=== PATIENT | female | born 1965 | race Caucasian/White ===

== ENCOUNTER 2019-04-15 13:53 | Observation (INO) | payer OTHER ==
[2019-04-15 15:10] LABS: Anion Gap 13 mmol/L (10-20); BUN (Urea Nitrogen) 7 mg/dL (9.8-20.1); Calc. Creatinine Clearance 0 mL/min (70-130); Calcium 8.2 mg/dL (7.8-10.44); Carbon Dioxide 18 mmol/L (22-29); Chloride 113 mmol/L (98-107); Estimated GFR-MDRD 82; Glucose 87 mg/dL (70-105); Potassium 4.2 mmol/L (3.5-5.1); Sodium 140 mmol/L (136-145)
--- NOTE | 2019-04-15 16:46 | PDOC.FPRHP ---
- History of Present Illness Chief Complaint: found unresponsive History of Present Illness: Pt states she was found outside by her son unresponsive. She was taken to [facility], and then transferred to [place]. Pt denies taking any bezodiazepam today. Her last dose was X3 days ago. She denies any suicidal or homicidal ideation. Pt states she does not remember anything after smoking cigarettes this morning. She states she only took her DM medication this morning. States she started coughing last night, non-productive. Son states she has taken 45 Xanax in the past month. ED course: Pt UDS showed + benzo Pt's encephalopathy has improved. - Allergies/Adverse Reactions Allergies Allergy/AdvReac Type Severity Reaction Status Date / Time ketorolac tromethamine Allergy Verified 04/15/19 18:35 [From Toradol] Penicillins Allergy Verified 04/15/19 18:35 phenytoin sodium Allergy Verified 04/15/19 18:35 [From Dilantin] phenytoin sodium extended Allergy Verified 04/15/19 18:35 [From Dilantin] pregabalin [From Lyrica] Allergy Verified 04/15/19 18:35 Sulfa (Sulfonamide Allergy Verified 04/15/19 18:35 Antibiotics) tuna Allergy Uncoded 04/15/19 18:35 - Home Medications Medication Instructions Recorded Confirmed Type ALPRAZolam 2 mg PO TID 10/23/15 04/15/19 History Pioglitazone HCl 15 mg PO HS 10/23/15 04/15/19 History metFORMIN HCl 1,000 mg PO BID-WM 10/23/15 04/15/19 History Bictegrav/Emtricit/Tenofov Ala 1 tab PO DAILY 04/15/19 04/15/19 History [Biktarvy 50-200-25 mg Tablet] Cetirizine HCl [Zyrtec] 10 mg PO DAILY 04/15/19 04/15/19 History Omeprazole 40 mg PO DAILY 04/15/19 04/15/19 History Ondansetron [Zofran ODT] 4 mg PO Q6HR PRN 04/15/19 04/15/19 History Spironolactone 50 mg PO QAM 04/15/19 04/15/19 History busPIRone HCl [Buspirone HCl] 30 mg PO BID 04/15/19 04/15/19 History traMADol HCl [Tramadol HCl] 50 mg PO Q6HR PRN 04/15/19 04/15/19 History - History PMHx: HIV, Cirrhosis, Hep C, DM II, anxiety PSHx: L-eye removal, BTL, cholecystectomy FHx: non-contributory Social: smokes cigarettes 1/2 ppd for 40 years, drinks etoh occasionally, denies recent drug use. Past cocaine abuse. Denies IVDA. - Review of Systems General: denies: fever/chills, night sweats Eyes: denies: eye pain, vision changes ENT: denies: nasal congestion, rhinorrhea Respiratory: reports: cough, congestion. denies: shortness of breath Cardiovascular: denies: chest pain, edema Gastrointestinal: denies: nausea, vomiting, diarrhea Skin: denies: rashes Musculoskeletal: denies: pain, tenderness Neurological: denies: numbness, seizure Psychological: reports: anxiety - Vital signs BP: 119/67 HR: 94 RR: 18 Tmax: 98.2 Pox: 94% on RA Wt: 57.8 - Physical Exam Constitutional: NAD, awake, alert and oriented, well developed HEENT: normocephalic and atraumatic, PERRLA, EOMI, conjunctiva clear, no scleral icterus, grossly normal vision, grossly normal hearing, MMM Neck: supple, FROM, trachea midline, no LAD, no JVD Heart: RRR, pulses present, no edema -Heart: 3/6 systolic murmur Lungs: CTAB, no respiratory distress, good air movement -Lungs: coughing on exam. Abdomen: soft, non-tender, bowel sounds present, no masses/distention Musculoskeletal: normal structure, normal tone, ROM grossly normal Neurological: no focal deficit, CN II-XII intact, normal sensation Skin: no rash/lesions, good turgor, capillary refill <2 seconds Heme/Lymphatic: no unusual bruising or bleeding, no purpura, no petechia Psychiatric: normal mood and affect -Psychiatric: memory of events this morning not intact. FMR H&P: Results - Labs Result Diagrams: 04/15/19 14:43 Lab results: Sodium 140 mmol/L (136-145) 04/15/19 14:43 Potassium 4.2 mmol/L (3.5-5.1) 04/15/19 14:43 Chloride 113 mmol/L (98-107) H 04/15/19 14:43 Carbon Dioxide 18 mmol/L (22-29) L 04/15/19 14:43 BUN 7 mg/dL (9.8-20.1) L 04/15/19 14:43 Creatinine 0.74 mg/dL (0.6-1.1) 04/15/19 14:43 Glucose 87 mg/dL (70-105) 04/15/19 14:43 Lactic Acid 1.9 mmol/L (0.5-2.2) 04/15/19 14:43 Calcium 8.2 mg/dL (7.8-10.44) 04/15/19 14:43 Laboratory Tests 04/15/19 04/15/19 10:49 10:49 Salicylates Less than 8.0 L Urine Opiates Screen Not Detected Ur Oxycodone Screen Not Detected Urine Methadone Screen Not Detected Ur Propoxyphene Screen Not Detected Acetaminophen Less than 6.0 L Ur Barbiturates Screen Not Detected Ur Tricyclics Screen Not Detected Ur Phencyclidine Scrn Not Detected Ur Amphetamines Screen Not Detected U Methamphetamines Scrn Not Detected U Benzodiazepines Scrn Detected H U Cocaine Metab Screen Not Detected U Cannabinoids Screen Not Detected Plasma Alcohol Less than 10 FMR H&P: A/P - Problem List (1) Acute encephalopathy Current Visit: Yes Status: Resolved Code(s): G93.40 - ENCEPHALOPATHY, UNSPECIFIED (2) Benzodiazepine dependence Current Visit: Yes Status: Acute Code(s): F13.20 - SEDATIVE, HYPNOTIC OR ANXIOLYTIC DEPENDENCE, UNCOMPLICATED (3) Generalized anxiety disorder Current Visit: Yes Status: Acute Code(s): F41.1 - GENERALIZED ANXIETY DISORDER (4) Hepatitis C antibody positive in blood Current Visit: No Status: Acute Code(s): R76.8 - OTHER SPECIFIED ABNORMAL IMMUNOLOGICAL FINDINGS IN SERUM (5) COPD (chronic obstructive pulmonary disease) Current Visit: Yes Status: Chronic (6) Cirrhosis Current Visit: Yes Status: Chronic Code(s): K74.60 - UNSPECIFIED CIRRHOSIS OF LIVER (7) Diabetes type 2, controlled Current Visit: Yes Status: Chronic Code(s): E11.9 - TYPE 2 DIABETES MELLITUS WITHOUT COMPLICATIONS (8) HIV (human immunodeficiency virus infection) Current Visit: Yes Status: Chronic - Plan 53 y/o F admitted to observation for acute encephalopathy 2/2 suspected benzodiazepam overdose. 1. Acute encephalopathy, NOS- resolved - most likely from benzodiazepam overdose - last dose X3 days ago per pt - admit for obs and furhter evaluation - ammonia level pending, pt has hx of hepatic encephalopathy. - Denies any suicidal thoughts inciting this event. Denies current suicidal or homicidal ideation - IVF hydration at 100 mL/hr of LR. 2. Cirrhosis - Ammonia level pending - continue home medications - ASE protocol 3. Hx of DM II - continue home medications 4. Hx of anxiety - hold benzodiazepams 5. Hx of HIV - continue home medications 6. Hx of Hep C - ammonia level pending, as pt has cirrhosis 7. Hx of COPD - duonebs PRN Code status: full code Diet: CC DVT ppx: SCDs Dispo: stable, admitting for observation while patient recuperates from bezodiazepam overdose. FMR H&P: Upper Level - Pertinent history 53 yo female presents for evaluation of AMS for one day. Son reports inappropriate use of Xanax. Patient reports no SI or HI. Patient is A&Ox4. ED physician requested observation stay due to possible Benzodiazepine OD. Please see learning and development intern note above for further information. Physical Exam General: NAD, appears stated age HEENT: moist mucous membranes, PERRLA CV: RRR, 3/6 Systolic murmur noted Respiratory: CTA-no wheezing Abdomen: Soft, nontender, no masses Extremities: moves all four equally Neuro: No focal deficits. Unremarkable exam Psych: A&Ox4, normal affect - Plan Date/Time: 04/15/19 3459 I, John Crowe MD, have evaluated this patient and agree with findings/ plan as outlined by learning and development intern resident. Pertinent changes/additions are listed here. 1. Encephalopathy - Resolved - Alcohol negative - Likely secondary to benzodiazepine use with UDS positive - Will order ASE protocol - IVF - Will order Ammonia to rule out hepatic cause All chronic conditions will have medications restarted. PCP: PATRICIA Choe CODE STATUS: FULL CODE Disposition: Stable, will admit to observation with anticipated discharge tomorrow AM. Addendum - Attending - Attending Attestation Date/Time: 04/15/19 0392 I personally evaluated the patient and discussed the management with Dr. Li. I agree with the History, Examination, Assessment and Plan documented above with any addition or exceptions noted below. The patient states her son found her "passed out" in the front yard and the only thing she remembers is going outside to smoke. UDS positive for benzos. She states she normally takes three a day but she states she hasn't had any today. Pt is sleepy but answers questions appropriately. Will monitor overnight. Encephalopathy appears to be resolving. Monitor for withdrawal.
[2019-04-15] MEDS ORDERED: Acetaminophen 325 MG TAB PO PRN (17:55)
[2019-04-15] MEDS ORDERED: Ondansetron ODT 4 MG TAB SL PRN (17:55)
[2019-04-15] MEDS ORDERED: Sodium Chloride 0.9% 1,000 ML IV SCH (17:55)
[2019-04-15] MEDS ORDERED: Ondansetron PF 4 MG/2 ML Vial IVP PRN (17:55)
[2019-04-15 18:06] VITALS: BMI 22.5
[2019-04-15] MEDS: Lactated Ringer's 1,000 ML IV SCH (18:17)
[2019-04-15] MEDS ORDERED: Nicotine 14 MG PATCH TD SCH (21:00)
[2019-04-16] MEDS: Lactated Ringer's 1,000 ML IV SCH (04:02)
[2019-04-16 04:58] LABS: ALT (SGPT) 22 U/L (8-55); AST (SGOT) 37 U/L (5-34); Albumin 2.6 g/dL (3.5-5.0); Alkaline Phosphatase 65 U/L (40-110); Anion Gap 10 mmol/L (10-20); BUN (Urea Nitrogen) 6 mg/dL (9.8-20.1); Bilirubin, Total 0.8 mg/dL (0.2-1.2); Calc. Creatinine Clearance 78 mL/min (70-130); Calcium 8.1 mg/dL (7.8-10.44); Carbon Dioxide 21 mmol/L (22-29); Chloride 114 mmol/L (98-107); Estimated GFR-MDRD 80; Glucose 117 mg/dL (70-105); Potassium 3.9 mmol/L (3.5-5.1); Protein, Total 5.6 g/dL (6.0-8.3); Sodium 141 mmol/L (136-145)
--- NOTE | 2019-04-16 05:40 | PDOC.FM ---
- Subjective Subjective: Mrs. Irby was resting comfortably in her hospital bed and finishing her breakfast at the time of evaluation. She denied any acute overnight events and stated that she was feeling much better than the day prior. Additionally, she noted that she had 1 BM that was free of blood or mucous. - Objective Vital Signs & Weight: Vital Signs (12 hours) Temp Pulse Resp BP Pulse Ox 04/16/19 03:50 98.9 F 84 18 91/57 L 92 L 04/16/19 01:45 98.8 F 93 24 H 101/57 L 94 L 04/15/19 23:40 99.0 F 102 H 22 H 111/93 H 92 L 04/15/19 19:47 98.4 F 94 20 115/86 92 L 04/15/19 17:51 98.2 F 84 18 119/67 94 L Weight Weight 57.788 kg I&O: 04/14/19 04/15/19 04/16/19 06:59 06:59 06:59 Intake Total 921 Balance 921 Result Diagrams: 04/16/19 04:11 04/16/19 04:11 Phys Exam - Physical Examination Constitutional: NAD HEENT: PERRLA, moist MMs, sclera anicteric, oral pharynx no lesions Left pupil remains fixed and nonreactive - patient states chronic blindness Neck: supple, full ROM Respiratory: no wheezing, no rales, no rhonchi, clear to auscultation bilateral Cardiovascular: RRR, no significant murmur, no rub Gastrointestinal: soft, non-tender, no distention, positive bowel sounds Musculoskeletal: pulses present +2 at Radial Arteries Neurological: non-focal, moves all 4 limbs Psychiatric: normal affect, A&O x 3 Dx/Plan - Plan Plan: 1. Acute Encephalopathy, 2/2 Benzo Abuse -Per patient, last dose was on 04/12 -Benzo overdose is most likely etiology, but patient also has hx of Hepatic Encephalopathy -UDS: +Benzos -Ammonia: 36 (WNL) -Patient denies SI/HI -Fluid resuscitation w/ LR @ 100 ml/hr 2. Cirrhosis, Multi-Factorial -Ammonia: 36 (WNL) -Continue home medication regimen 3. DM2 -Blood Glucose: 117 on 04/16 -Continue home medication regimen 4. Hx of Anxiety -Hold Benzo regimen - continue Buspirone 30 mg PO BID 5. HIV -Continue home medication regimen 6. Hx of Hep C -Complicated by #2 -Ammonia: 36 (WNL) 7. Hx of COPD -Duonebs PRN 8. Hx of Drug Abuse -Patient currently abuses Benzos, admitted to Crack Cocaine usage within past week -Monitor for signs of withdrawal to above-mentioned drugs -ASE Protocol Code Status: Full Code Diet: Carbohydrate Conscious DVT PPx: SCDs Dispo: Patient is currently stable on Observation Floor. Consider DC this afternoon if condition continues to remain stable. Ensure appropriate follow-up with Dr. Greg Choe (PCP) and encourage drug treatment program in preferred setting. Expected LOS < 24H Addendum - Attending - Attending Attestation Date/Time: 04/16/19 7074 I personally evaluated the patient and discussed the management with Dr. Chen. I agree with the History, Examination, Assessment and Plan documented above with any addition or exceptions noted below. The patient is doing well. She is alert and oriented. Stable for d/c. Recommend she follow up with PCP to discuss decreasing benzos.
[2019-04-16 05:46] LABS: #Eosinphils 0.1 thou/uL (0.0-0.7); #Lymphocytes 0.6 thou/uL (1.20-3.40); #Monocytes 0.4 thou/uL (0.11-0.59); #Neutrophils 1.8 thou/uL (1.40-6.50); %Basophils 0.2 % (0.0-1.0); %Eosinophils 2.2 % (0.0-10.0); %Lymphocytes 22.2 % (21.0-51.0); %Monocytes 12.3 % (0.0-10.0); %Neutrophils 63.1 % (42.0-75.0); Anisocytosis SLIGHT = 6-15 cells (100X) (0-5/hpf); MDiff Complete? YES; Mean Corpuscular Hemoglobin 28.3 pg (27.0-31.0); Mean Corpuscular Volume 88.3 fL (78.0-98.0); Mean Platelet Volume 11.1 fL (7.4-10.4); Platelet Count 54 thou/uL (130-400); Platelet Morphology Comment Appears Decreased; RBC Distribution Width 19.5 % (11.5-14.5); Red Blood Cell (RBC) Count 3.19 mill/uL (4.20-5.40); White Blood Cell (WBC) Count 2.8 thou/uL (4.8-10.8)
[2019-04-16] MEDS ORDERED: metFORMIN 500 MG TAB PO SCH (08:00)
[2019-04-16] MEDS ORDERED: busPIRone HCl 10 MG TAB PO SCH (09:00)
[2019-04-16] MEDS ORDERED: (Bictegrav/Emtricit/Tenofov Ala [Biktarvy 50-200-25 Mg Tablet] PO SCH (09:00)
[2019-04-16] MEDS ORDERED: Loratadine 10 MG TAB PO SCH (09:00)
[2019-04-16] MEDS ORDERED: Spironolactone 25 MG TAB PO SCH (09:00)
[2019-04-16 12:35] VITALS: BP 115/55; TEMP 97.6
[2019-04-16] MEDS ORDERED: Pioglitazone HCl 15 MG TAB PO SCH (21:00)
--- NOTE | 2019-04-17 01:04 | DIS ---
DATE OF ADMISSION: 04/15/2019 DATE OF DISCHARGE: 04/16/2019 RESIDENT: Abelino Chen MD ADMITTING ATTENDING: Anju Martínez MD DISCHARGE ATTENDING: Anju Martínez MD. CONSULTS: None. PROCEDURES: Brain CT revealing no acute findings; however, a prosthetic left globe was noted. Chest x-ray revealing no acute intrathoracic disease and EKG was performed at an outside hospital that revealed normal sinus rhythm. PRIMARY DIAGNOSIS: Altered mental status secondary to benzodiazepine overdose. SECONDARY DIAGNOSES: Generalized anxiety disorder, posttraumatic stress disorder, HIV, uncontrolled diabetes mellitus, hepatitis C, normocytic anemia, hyperammonia, benzodiazepine dependence, chronic obstructive pulmonary disease, polysubstance abuse, macrocytosis, thrombocytopenia, cirrhosis. DISCHARGE MEDICATIONS: None. DISCONTINUED MEDICATIONS: 1. Buspirone 30 mg p.o. b.i.d. 2. Lactated Ringer's at 100 mL/h. 3. Loratadine 10 mg p.o. daily. 4. Metformin 1000 mg p.o. b.i.d. 5. Nicotine patch 14 mg q.24 hours. 6. Protonix 40 mg p.o. daily. 7. Biktarvy 50/200/25 mg tablet once daily. 8. Pioglitazone 15 mg p.o. at bedtime. 9. Spironolactone 50 mg p.o. q.a.m. HISTORY OF PRESENT ILLNESS/HOSPITAL COURSE: Ms. Irby is a 53-year-old female, who presents for evaluation following mental status changes. Per ED provider report, she was allegedly found down in her yard by her son and was brought to an ER in [place], [place]. Following preliminary study, she was then transferred to the ER in [place], [place] at [facility]. She was A and O x0 and denied recent benzodiazepine use or abuse. She denied homicidal or suicidal ideations, but she did admit to a recent history of crack cocaine abuse within the past week. During her stay in the ED, she was given 1000 mL bolus of normal saline fluid. Additional imaging modalities and EKG were performed which are mentioned elsewhere in this note. Her condition continued to improve and she was admitted to the telemetry floor for observation. On evaluation on 04/16/2019, she was A and O x4. Her physical examination unremarkable and she was prepped for discharge. Prior to discharge, her vital signs revealed a temperature of 97.6, heart rate of 90 beats per minute, blood pressure of 115/55, respiratory rate of 20 per minute, O2 saturation of 97% on 3 L nasal cannula. LABORATORY DATA: Laboratory values revealed a white blood cell count of 2.8, hemoglobin of 9, hematocrit of 28.1, platelet count of 54. Sodium of 141, potassium 3.9, chloride 114, carbon dioxide 21, BUN 6, creatinine 0.76, glucose 117, calcium 8.1, total bilirubin 0.8, AST 37, ALT 22, alkaline phosphatase 65, ammonia 36. Troponins negative x1. TSH 0.905. UA revealed no proteins, glucose, ketones; moderate amount of blood; no nitrites; small amount of bilirubin, and no leukocyte esterase. Toxicology revealed a positive screen for benzodiazepines. DISPOSITION: Stable. DISCHARGE INSTRUCTIONS: 1. Location: Home. 2. Diet: Heart healthy and carbohydrate conscious. 3. Activity: Ad anirudh. 4. Followup: The patient was encouraged to follow up with her primary care provider whom she referred to as Greg Choe in 1 to 2 weeks in order to discuss her recent hospitalization as well as any necessary medication changes. The patient was encouraged to seek additional outside therapy for her drug abuse. Inpatient and/or outpatient drug abuse rehabilitation programs may benefit in the future. The patient was pleased with her level of care while in the hospital and her condition improved greatly during her time here. Job ID: [id number]
== END 2019-04-16 13:05 | disposition home or self-care (01) ==
LOC: ERS 13:53 → 2SW 16:00
PROVIDERS: ADMIT Family Medicine; ATTEND Family Medicine
DX: T42.4X1A Poisoning by benzodiazepines, accidental (unintentional), initial encounter (principal); G92 Toxic encephalopathy; F13.20 Sedative, hypnotic or anxiolytic dependence, uncomplicated; K74.60 Unspecified cirrhosis of liver; E11.9 Type 2 diabetes mellitus without complications; F17.210 Nicotine dependence, cigarettes, uncomplicated; F41.1 Generalized anxiety disorder; F14.11 Cocaine abuse, in remission; J44.9 Chronic obstructive pulmonary disease, unspecified; F43.10 Post-traumatic stress disorder, unspecified; D64.9 Anemia, unspecified; D69.6 Thrombocytopenia, unspecified; E72.20 Disorder of urea cycle metabolism, unspecified; Z21 Asymptomatic human immunodeficiency virus [HIV] infection status; Z79.84 Long term (current) use of oral hypoglycemic drugs; Z79.899 Other long term (current) drug therapy; Z88.0 Allergy status to penicillin; Z88.2 Allergy status to sulfonamides; Z88.6 Allergy status to analgesic agent; Z88.8 Allergy status to other drugs, medicaments and biological substances; Z91.013 Allergy to seafood
CPT/HCPCS: 36415; 36416; 80053; 82140; 83605; 85025; 94760; 96360; 96361; G0378

== ENCOUNTER 2020-04-18 13:23 | Outpatient (CLI) | payer OTHER | END 2020-04-18 13:24 | disposition home or self-care (01) | LOC: ULT 13:23 | PROVIDERS: ATTEND Family Medicine | DX: R01.1 Cardiac murmur, unspecified (principal); I10 Essential (primary) hypertension; I08.1 Rheumatic disorders of both mitral and tricuspid valves | CPT/HCPCS: 93306 ==

== ENCOUNTER 2020-04-30 08:35 | Outpatient (CLI) | payer OTHER ==
--- NOTE | 2020-04-30 09:52 | MMO ---
Bilateral MAMMO Bilat Screen DDI. CLINICAL HISTORY: Patient is 54 years old and is seen for screening. The patient has no family history of breast cancer. The patient has no personal history of cancer. VIEWS: The views performed were: bilateral craniocaudal and bilateral mediolateral oblique. FILMS COMPARED: The present examination has been compared to prior imaging studies performed at [facility] on 02/13/2007, 11/02/2011 and 05/21/2013, and at [facility] on 04/21/2018. This study has been interpreted with the assistance of computer-aided detection. MAMMOGRAM FINDINGS: The breasts are heterogeneously dense, which could obscure a lesion on mammography. There are no suspicious masses, suspicious calcifications, or new areas of architectural distortion. IMPRESSION: THERE IS NO MAMMOGRAPHIC EVIDENCE OF MALIGNANCY. A ROUTINE FOLLOW-UP MAMMOGRAM IN 1 YEAR IS RECOMMENDED. ACR BI-RADS Category 1 - Negative MAMMOGRAPHY NOTE: 1. A negative mammogram report should not delay a biopsy if a dominant of clinically suspicious mass is present. 2. Approximately 10% to 15% of breast cancers are not detected by mammography. 3. Adenosis and dense breasts may obscure an underlying neoplasm. Reported by: RAMSES ADAMS MD Electonically Signed: [id number]
== END 2020-04-30 08:36 | disposition home or self-care (01) ==
LOC: BICMAMMO 08:35
PROVIDERS: ATTEND Family Medicine
DX: Z12.31 Encounter for screening mammogram for malignant neoplasm of breast (principal)
CPT/HCPCS: 77067

== ENCOUNTER 2021-04-22 14:59 | Inpatient (IN) | payer OTHER ==
[~2021-04-22 14:59] MED LIST: Iopamidol-370 76% 500 ML 1 ML ONE
[2021-04-22 15:39] LABS: Actual Bicarbonate (HCO3v) 18 mEq/L (22-28); Analyzer IN Cardio ER; Base Excess -3.4 mEq/L (-2.0 to +3.0); Calcium, Ionized (venous) 1.03 mmol/L (1.16-1.32); Chloride (VBG) 105 mmol/L (98-106); Hemoglobin (Hb) 8.4 g/dL (11.7-16.0); Sodium 131.4 mmol/L (133-146); pH (venous) 7.52 (7.32-7.43)
[2021-04-22 15:47] LABS: Hemoglobin 7.7 g/dL (12.0-16.0); Mean Corpuscular HGB CONC 31.1 g/dL (32.0-36.0); Mean Corpuscular Hemoglobin 26.4 pg (27.0-31.0); Mean Corpuscular Volume 84.9 fL (78.0-98.0); Mean Platelet Volume 10.2 fL (7.4-10.4); Platelet Count 90 thou/uL (130-400); RBC Distribution Width 21.4 % (11.5-14.5); Red Blood Cell (RBC) Count 2.91 mill/uL (4.20-5.40); White Blood Cell (WBC) Count 5.7 thou/uL (4.8-10.8)
[2021-04-22 15:57] LABS: ALT (SGPT) 23 U/L (8-55); AST (SGOT) 37 U/L (5-34); Albumin 2.2 g/dL (3.5-5.0); Alkaline Phosphatase 138 U/L (40-110); Anion Gap 10 mmol/L (10-20); BUN (Urea Nitrogen) 14 mg/dL (9.8-20.1); Bilirubin, Total 2.2 mg/dL (0.2-1.2); Calc. Creatinine Clearance 0 mL/min (70-130); Calcium 8.2 mg/dL (7.8-10.44); Carbon Dioxide 23 mmol/L (22-29); Chloride 104 mmol/L (98-107); Globulin 4.5 g/dL (2.4-3.5); Glucose 112 mg/dL (70-105); Lipase 84 U/L (8-78); Potassium 3.7 mmol/L (3.5-5.1); Protein, Total 6.7 g/dL (6.0-8.3); Sodium 133 mmol/L (136-145)
[2021-04-22 16:06] LABS: Anisocytosis MODERATE=16-30 cells (100X) (0-5/hpf); Band 1 % (5-11); Eosinophils 7 % (0-10); Hypochromia SLIGHT = 6-15 cells (100X) (0-5/hpf); Lymphocytes 8 % (21-51); MDiff Complete? YES; Monocytes 5 % (0-10); Neutrophil 78 % (42-75); Platelet Morphology Comment Appears Decreased; Polychromasia MODERATE = 3-4 cells (100X) (0-2/hpf); Reactive Lymphocytes 1 % (0-10)
[2021-04-22] MEDS ORDERED: Cefepime 2 GM VIAL ONE (16:07)
[2021-04-22 16:15] LABS: INR-International Normal Ratio 1.3; Prothrombin Time 16.7 sec (12.0-14.7)
[2021-04-22 16:16] LABS: PTT 43.4 sec (22.9-36.1)
[2021-04-22] MEDS ORDERED: Albumin 25% 25 GM/100 ML BOT IVPB SCH (16:30)
[2021-04-22 17:25] LABS: RBC Count-Automated (BF) 210 /cu.mm; WBC/Nucleated-Auto (BF) 192 /cu.mm
[2021-04-22] MEDS ORDERED: Enoxaparin Sodium 80 MG/0.8 ML SYRINGE ONE (17:29)
[2021-04-22 17:30] LABS: BF Color Yellow; Body Fluid Source Ascites Body Fluid; Clarity Hazy (Clear); Tube # EDTA
[2021-04-22 17:50] LABS: BF Segmented Neutrophils 11 %; Cell Count Non Hematic 48 %; Lymphocytes 41 %
[2021-04-22 18:48] LABS: Lactic Acid 1.1 mmol/L (0.5-2.2)
[2021-04-22] MEDS ORDERED: Ondansetron ODT 4 MG TAB PO PRN (19:40)
[2021-04-22] MEDS ORDERED: Ondansetron PF 4 MG/2 ML Vial IVP PRN (19:40)
[2021-04-22] MEDS ORDERED: Furosemide 40 MG/4 ML VIAL SLOW IVP SCH (19:45)
[2021-04-22] MEDS ORDERED: Loratadine 10 MG TAB PO PRN (22:10)
[2021-04-22 22:20] VITALS: BMI 25.7
[2021-04-22] MEDS: Senokot 8.6 MG TAB PO SCH (22:54)
[2021-04-22] MEDS: Polyethylene Glycol 3350 17 GM Packet PO SCH (22:54)
[2021-04-23 05:42] LABS: Eosinophils 5 % (0-10); Hemoglobin 6.7 g/dL (12.0-16.0); Hypochromia SLIGHT = 6-15 cells (100X) (0-5/hpf); Lymphocytes 9 % (21-51); MDiff Complete? YES; Mean Corpuscular Hemoglobin 26.5 pg (27.0-31.0); Mean Corpuscular Volume 85.5 fL (78.0-98.0); Mean Platelet Volume 10.6 fL (7.4-10.4); Monocytes 6 % (0-10); Neutrophil 80 % (42-75); Platelet Count 63 thou/uL (130-400); Platelet Morphology Comment Appears Decreased; Polychromasia SLIGHT = 2-3 cells (100X) (0-2/hpf); RBC Distribution Width 21.8 % (11.5-14.5); Red Blood Cell (RBC) Count 2.51 mill/uL (4.20-5.40); Tear Drops SLIGHT = 2-5 cells (100X) (0-1/hpf); White Blood Cell (WBC) Count 3.7 thou/uL (4.8-10.8)
[2021-04-23 05:44] LABS: ALT (SGPT) 18 U/L (8-55); AST (SGOT) 31 U/L (5-34); Albumin 2.2 g/dL (3.5-5.0); Alkaline Phosphatase 116 U/L (40-110); Anion Gap 7 mmol/L (10-20); BUN (Urea Nitrogen) 14 mg/dL (9.8-20.1); Bilirubin, Total 1.8 mg/dL (0.2-1.2); Calc. Creatinine Clearance 87 mL/min (70-130); Carbon Dioxide 27 mmol/L (22-29); Chloride 103 mmol/L (98-107); Globulin 3.5 g/dL (2.4-3.5); Glucose 101 mg/dL (70-105); Potassium 3.3 mmol/L (3.5-5.1); Protein, Total 5.7 g/dL (6.0-8.3); Sodium 134 mmol/L (136-145)
[2021-04-23] MEDS: Senokot 8.6 MG TAB PO SCH ×2 (08:40→20:32)
[2021-04-23] MEDS: Losartan 25 MG TAB PO SCH ×2 (08:40→08:43)
[2021-04-23] MEDS: Spironolactone 25 MG TAB PO SCH (08:40)
[2021-04-23] MEDS: busPIRone HCl 10 MG TAB PO SCH (08:41)
[2021-04-23] MEDS ORDERED: Enoxaparin Sodium 80 MG/0.8 ML SYRINGE SC SCH (09:00)
[2021-04-23] MEDS ORDERED: FLU VACC QS2021-22(6MOS UP)/PF 60 MCG/0.5 ML SYRINGE IM ONE (09:00)
[2021-04-23 11:58] LABS: INR-International Normal Ratio 1.6; Prothrombin Time 19.1 sec (12.0-14.7)
[2021-04-23 11:59] LABS: PTT 51.9 sec (22.9-36.1)
[2021-04-23] MEDS ORDERED: Albumin 25% 25 GM/100 ML BOT IVPB SCH (12:00)
[2021-04-23 12:05] LABS: SARS-CoV-2 PCR by NAA Not Detected (NotDetected)
[2021-04-23] MEDS ORDERED: Sodium Bicarbonate 2.5 MEQ/5 ML VIAL ONE (13:32)
[2021-04-23] MEDS ORDERED: Lidocaine 1% PF 5 ML VIAL ONE (13:32)
[2021-04-23] MEDS: Albuterol Sulfate 2.5 mg/3 ml Neb NEB SCH ×2 (15:14→15:18)
[2021-04-23] MEDS: traZODone HCl 150 MG TAB PO SCH (20:32)
[2021-04-23] MEDS: Polyethylene Glycol 3350 17 GM Packet PO SCH (20:32)
[2021-04-24 05:08] LABS: Hemoglobin 8.2 g/dL (12.0-16.0); Mean Corpuscular HGB CONC 31.7 g/dL (32.0-36.0); Mean Corpuscular Hemoglobin 27.7 pg (27.0-31.0); Mean Corpuscular Volume 87.4 fL (78.0-98.0); Mean Platelet Volume 10.9 fL (7.4-10.4); Platelet Count 67 thou/uL (130-400); Red Blood Cell (RBC) Count 2.95 mill/uL (4.20-5.40); White Blood Cell (WBC) Count 5.2 thou/uL (4.8-10.8)
[2021-04-24 05:11] LABS: ALT (SGPT) 18 U/L (8-55); AST (SGOT) 32 U/L (5-34); Albumin 2.2 g/dL (3.5-5.0); Alkaline Phosphatase 106 U/L (40-110); Anion Gap 7 mmol/L (10-20); BUN (Urea Nitrogen) 11 mg/dL (9.8-20.1); Bilirubin, Total 2.5 mg/dL (0.2-1.2); Calc. Creatinine Clearance 92 mL/min (70-130); Carbon Dioxide 24 mmol/L (22-29); Chloride 106 mmol/L (98-107); Globulin 3.5 g/dL (2.4-3.5); Glucose 109 mg/dL (70-105); Potassium 3.1 mmol/L (3.5-5.1); Protein, Total 5.7 g/dL (6.0-8.3); Sodium 134 mmol/L (136-145)
[2021-04-24 06:01] LABS: Anisocytosis MODERATE=16-30 cells (100X) (0-5/hpf); Band 5 % (5-11); Eosinophils 3 % (0-10); Lymphocytes 14 % (21-51); MDiff Complete? YES; Monocytes 10 % (0-10); Myelocyte 1 % (0-0); Neutrophil 67 % (42-75); Platelet Morphology Comment Appears Decreased
[2021-04-24] MEDS: Albuterol Sulfate 2.5 mg/3 ml Neb NEB SCH ×3 (06:47→19:00)
[2021-04-24] MEDS ORDERED: Sodium Bicarbonate 2.5 MEQ/5 ML VIAL ONE (07:27)
[2021-04-24] MEDS ORDERED: Lidocaine 1% PF 5 ML VIAL ONE (07:27)
[2021-04-24] MEDS ORDERED: Albumin 25% 25 GM/100 ML BOT IVPB SCH (08:30)
[2021-04-24] MEDS ORDERED: Potassium Chloride 20 MEQ TAB PO SCH (08:30)
[2021-04-24] MEDS: Senokot 8.6 MG TAB PO SCH (09:19)
[2021-04-24] MEDS: Losartan 25 MG TAB PO SCH (09:29)
[2021-04-24] MEDS: busPIRone HCl 10 MG TAB PO SCH (09:30)
[2021-04-24] MEDS: Spironolactone 25 MG TAB PO SCH (09:30)
[2021-04-24 10:36] LABS: Magnesium 1.4 mg/dL (1.6-2.6)
[2021-04-24] MEDS ORDERED: PROPOFOL 200 MG/20 ML VIAL ONE (12:34)
[2021-04-24] MEDS ORDERED: Sodium Chloride 0.9% 10 ML ONE (12:53)
[2021-04-24] MEDS ORDERED: Bictegrav/Emtricit/Tenofov Ala [Biktarvy 50-200-25 Mg Tablet] PO SCH (19:45)
[2021-04-24] MEDS: traZODone HCl 150 MG TAB PO SCH (20:51)
[2021-04-25 05:15] LABS: ALT (SGPT) 16 U/L (8-55); AST (SGOT) 34 U/L (5-34); Albumin 2.2 g/dL (3.5-5.0); Alkaline Phosphatase 96 U/L (40-110); Anion Gap 6 mmol/L (10-20); BUN (Urea Nitrogen) 9 mg/dL (9.8-20.1); Bilirubin, Total 1.4 mg/dL (0.2-1.2); Calc. Creatinine Clearance 91 mL/min (70-130); Carbon Dioxide 25 mmol/L (22-29); Chloride 106 mmol/L (98-107); Globulin 3.2 g/dL (2.4-3.5); Glucose 131 mg/dL (70-105); Potassium 3.8 mmol/L (3.5-5.1); Protein, Total 5.4 g/dL (6.0-8.3); Sodium 133 mmol/L (136-145)
[2021-04-25 06:11] LABS: Band 7 % (5-11); Eosinophils 3 % (0-10); Hemoglobin 7.8 g/dL (12.0-16.0); Hypochromia SLIGHT = 6-15 cells (100X) (0-5/hpf); Large Platelets SLIGHT; Lymphocytes 8 % (21-51); MDiff Complete? YES; Mean Corpuscular HGB CONC 31.7 g/dL (32.0-36.0); Mean Corpuscular Hemoglobin 27.7 pg (27.0-31.0); Mean Corpuscular Volume 87.6 fL (78.0-98.0); Mean Platelet Volume 11.1 fL (7.4-10.4); Monocytes 11 % (0-10); Neutrophil 71 % (42-75); Platelet Count 52 thou/uL (130-400); Platelet Morphology Comment Appears Decreased; RBC Distribution Width 21.7 % (11.5-14.5); Red Blood Cell (RBC) Count 2.81 mill/uL (4.20-5.40); White Blood Cell (WBC) Count 4.6 thou/uL (4.8-10.8)
[2021-04-25] MEDS: Albuterol Sulfate 2.5 mg/3 ml Neb NEB SCH ×3 (07:51→19:40)
[2021-04-25] MEDS: Losartan 25 MG TAB PO SCH (08:45)
[2021-04-25] MEDS: Furosemide 20 MG TAB PO SCH (08:45)
[2021-04-25] MEDS: busPIRone HCl 10 MG TAB PO SCH (08:45)
[2021-04-25] MEDS: Spironolactone 25 MG TAB PO SCH (08:45)
[2021-04-25] MEDS: Bictegrav/Emtricit/Tenofov Ala [Biktarvy 50-200-25 Mg Tablet] PO SCH (08:46)
[2021-04-25] MEDS ORDERED: Furosemide 20 MG TAB PO SCH (09:00)
[2021-04-25] MEDS: traZODone HCl 150 MG TAB PO SCH (23:05)
[2021-04-26 04:45] LABS: ALT (SGPT) 19 U/L (8-55); AST (SGOT) 35 U/L (5-34); Albumin 2.2 g/dL (3.5-5.0); Alkaline Phosphatase 91 U/L (40-110); Anion Gap 9 mmol/L (10-20); BUN (Urea Nitrogen) 8 mg/dL (9.8-20.1); Bilirubin, Total 1.3 mg/dL (0.2-1.2); Calc. Creatinine Clearance 92 mL/min (70-130); Calcium 7.6 mg/dL (7.8-10.44); Carbon Dioxide 23 mmol/L (22-29); Chloride 103 mmol/L (98-107); Globulin 3.2 g/dL (2.4-3.5); Glucose 116 mg/dL (70-105); Potassium 3.8 mmol/L (3.5-5.1); Protein, Total 5.4 g/dL (6.0-8.3); Sodium 131 mmol/L (136-145)
[2021-04-26 06:08] LABS: Hemoglobin 8.2 g/dL (12.0-16.0); MDiff Complete? YES; Mean Corpuscular HGB CONC 31.4 g/dL (32.0-36.0); Mean Corpuscular Hemoglobin 27.9 pg (27.0-31.0); Mean Corpuscular Volume 88.8 fL (78.0-98.0); Mean Platelet Volume 5.6 fL (7.4-10.4); Platelet Count 51 thou/uL (130-400); RBC Distribution Width 22.1 % (11.5-14.5); Red Blood Cell (RBC) Count 2.96 mill/uL (4.20-5.40)
[2021-04-26 06:09] LABS: Anisocytosis SLIGHT = 6-15 cells (100X) (0-5/hpf); Band 18 % (5-11); Eosinophils 1 % (0-10); Lymphocytes 11 % (21-51); Monocytes 8 % (0-10); Neutrophil 62 % (42-75); Platelet Morphology Comment Appears Decreased
[2021-04-26] MEDS: Albuterol Sulfate 2.5 mg/3 ml Neb NEB SCH ×2 (07:38→13:11)
[2021-04-26] MEDS: Spironolactone 25 MG TAB PO SCH (10:28)
[2021-04-26] MEDS: busPIRone HCl 10 MG TAB PO SCH (10:28)
[2021-04-26] MEDS: Furosemide 20 MG TAB PO SCH (10:29)
[2021-04-26] MEDS: Bictegrav/Emtricit/Tenofov Ala [Biktarvy 50-200-25 Mg Tablet] PO SCH (10:29)
[2021-04-26 16:24] VITALS: BP 110/58; TEMP 97.6
== END 2021-04-26 18:40 | disposition home or self-care (01) | DRG 432 ==
LOC: ERS 14:59 → 2NO 17:57
PROVIDERS: ADMIT Student in an Organized Health Care Education/Training Program; ATTEND Student in an Organized Health Care Education/Training Program
PROC: 0W9G3ZZ Drainage of Peritoneal Cavity, Percutaneous Approach (ICD-10-PCS; principal; 2021-04-22)
PROC: 0W9G3ZZ Drainage of Peritoneal Cavity, Percutaneous Approach (ICD-10-PCS; 2021-04-23)
PROC: 30233N1 Transfusion of Nonautologous Red Blood Cells into Peripheral Vein, Percutaneous Approach (ICD-10-PCS; 2021-04-23)
PROC: 0W9G3ZZ Drainage of Peritoneal Cavity, Percutaneous Approach (ICD-10-PCS; 2021-04-24)
PROC: 0DJ08ZZ Inspection of Upper Intestinal Tract, Via Natural or Artificial Opening Endoscopic (ICD-10-PCS; 2021-04-24)
DX: K74.69 Other cirrhosis of liver (principal); I81 Portal vein thrombosis; J96.01 Acute respiratory failure with hypoxia; K55.059 Acute (reversible) ischemia of intestine, part and extent unspecified; I26.99 Other pulmonary embolism without acute cor pulmonale; E46 Unspecified protein-calorie malnutrition; K76.6 Portal hypertension; I85.00 Esophageal varices without bleeding; B20 Human immunodeficiency virus [HIV] disease; K70.31 Alcoholic cirrhosis of liver with ascites; J43.9 Emphysema, unspecified; F41.9 Anxiety disorder, unspecified; F17.210 Nicotine dependence, cigarettes, uncomplicated; E11.40 Type 2 diabetes mellitus with diabetic neuropathy, unspecified; F31.9 Bipolar disorder, unspecified; F41.1 Generalized anxiety disorder; I10 Essential (primary) hypertension; M19.90 Unspecified osteoarthritis, unspecified site; Z20.822 Contact with and (suspected) exposure to COVID-19; K59.00 Constipation, unspecified; D64.9 Anemia, unspecified; D69.6 Thrombocytopenia, unspecified; K31.89 Other diseases of stomach and duodenum; F43.10 Post-traumatic stress disorder, unspecified; Z98.51 Tubal ligation status; Z90.49 Acquired absence of other specified parts of digestive tract; Z88.0 Allergy status to penicillin; Z88.2 Allergy status to sulfonamides; Z79.899 Other long term (current) drug therapy; Z88.8 Allergy status to other drugs, medicaments and biological substances; Z91.013 Allergy to seafood; Z68.25 Body mass index [BMI] 25.0-25.9, adult
CPT/HCPCS: 36415; 36416; 36430; 49083; 71045; 74177; 80053; 82042; 82805; 82945; 83605; 83690; 83735; 83880; 84484; 85025; 85060; 85610; 85730; 86850; 86900; 86901; 87040; 87070; 87205; 89051; 93005; 93306; 96365; 96366; 96367; 96372; J0692; J1650; J1940; J2704; J7611; P9016; P9047; Q0162; Q9967; U0003; U0005

== ENCOUNTER 2021-06-07 19:18 | Inpatient (IN) | payer OTHER ==
[2021-06-07] MEDS ORDERED: Cefepime 2 GM VIAL ONE (20:48)
[2021-06-07 20:55] LABS: PTT 41.1 sec (22.9-36.1); Prothrombin Time 23.1 sec (12.0-14.7)
[2021-06-07 21:04] LABS: ALT (SGPT) 29 U/L (8-55); AST (SGOT) 58 U/L (5-34); Albumin 1.6 g/dL (3.5-5.0); Alkaline Phosphatase 167 U/L (40-110); Anion Gap 18 mmol/L (10-20); BUN (Urea Nitrogen) 32 mg/dL (9.8-20.1); CK (CPK) 144 U/L (29-168); Calc. Creatinine Clearance 0 mL/min (70-130); Calcium 8.4 mg/dL (7.8-10.44); Carbon Dioxide 15 mmol/L (22-29); Chloride 98 mmol/L (98-107); Globulin 4.1 g/dL (2.4-3.5); Lipase 33 U/L (8-78); Potassium 5.4 mmol/L (3.5-5.1); Protein, Total 5.7 g/dL (6.0-8.3); Sodium 126 mmol/L (136-145)
[2021-06-07 21:08] LABS: SARS-CoV-2 NAA Rapid Test Not Detected (NotDetected)
[2021-06-07 21:18] LABS: Glucose 35 mg/dL (70-105)
[2021-06-07] MEDS ORDERED: Dextrose 50% Abboject 50 ML SYRINGE ONE (21:21)
[2021-06-07] MEDS ORDERED: Vancomycin 1 GM/200 ML BAG ONE (21:22)
[2021-06-07 21:59] LABS: Anisocytosis MODERATE=16-30 cells (100X) (0-5/hpf); Band 42 % (5-11); Hemoglobin 9.4 g/dL (12.0-16.0); Lymphocytes 3 % (21-51); MDiff Complete? YES; Macrocytosis SLIGHT = 6-15 cells (100X) (0-5/hpf); Mean Corpuscular HGB CONC 29.2 g/dL (32.0-36.0); Mean Corpuscular Volume 95.6 fL (78.0-98.0); Mean Platelet Volume 10.3 fL (7.4-10.4); Metamyelocyte 2 % (0-0); Myelocyte 2 % (0-0); Neutrophil 51 % (42-75); Nucleated RBC 11 % (0); Platelet Count 180 thou/uL (130-400); Polychromasia MODERATE = 3-4 cells (100X) (0-2/hpf); RBC Distribution Width 25.6 % (11.5-14.5); Red Blood Cell (RBC) Count 3.35 mill/uL (4.20-5.40); Toxic Granulation SLIGHT; White Blood Cell (WBC) Count 17.7 thou/uL (4.8-10.8)
[2021-06-07] MEDS ORDERED: Albumin 25% 25 GM/100 ML BOT IVPB SCH (22:00)
[2021-06-07] MEDS ORDERED: Bisacodyl 5 MG TAB PO PRN (22:55)
[2021-06-07] MEDS ORDERED: Dextrose 5% in Water 1,000 ML IV PRN (22:55)
[2021-06-07] MEDS ORDERED: Dextrose 50% Abboject 50 ML SYRINGE SLOW IVP PRN (22:55)
[2021-06-07] MEDS ORDERED: HumaLOG 300 UNITS/3 ML VIAL SC PRN ×2 (22:55)
[2021-06-07] MEDS ORDERED: Lactated Ringer's 500 ML IV SCH (23:15)
[2021-06-07 23:50] LABS: Lactic Acid 7.8 mmol/L (0.5-2.2)
[2021-06-08] MEDS ORDERED: Lactated Ringer's 250 ML IV SCH (00:15)
[2021-06-08 00:42] LABS: RBC Count-Automated (BF) 0 /cu.mm; WBC/Nucleated-Auto (BF) 6815 /cu.mm
[2021-06-08 00:47] LABS: BF Color Yellow; Body Fluid Source Paracentesis Fluid; Clarity Hazy (Clear); Tube # 1
[2021-06-08 01:08] VITALS: BMI 23.6
[2021-06-08] MEDS ORDERED: Vancomycin HCl 500 MG in Sodium Chloride 0.9% 100 ML IVPB SCH (02:00)
[2021-06-08 03:11] LABS: BF Segmented Neutrophils 94 %; Cell Count Non Hematic 2 %; Lymphocytes 4 %
[2021-06-08 03:17] LABS: Troponin I Less than 0.010 ng/mL (< 0.028)
[2021-06-08] MEDS: Ondansetron ODT 4 MG TAB PO PRN ×2 (05:59→14:58)
[2021-06-08] MEDS ORDERED: Metoclopramide HCl 10 MG/2 ML VIAL IVP SCH (07:30)
[2021-06-08] MEDS ORDERED: Fentanyl 100 MCG/2 ML VIAL SLOW IVP SCH (07:30)
[2021-06-08] MEDS ORDERED: Bictegrav/Emtricit/Tenofov Ala [Biktarvy 50-200-25 Mg Tablet] PO SCH (09:00)
[2021-06-08] MEDS ORDERED: Famotidine 20 MG TAB PO SCH (09:00)
[2021-06-08] MEDS ORDERED: Sodium Chloride 1 GM TAB PO SCH (09:00)
[2021-06-08] MEDS: Fentanyl 100 MCG/2 ML VIAL SLOW IVP SCH ×2 (09:58→10:08)
[2021-06-08] MEDS: cefTRIAXone\\ROCEPHIN 1 GM in Sodium Chloride 0.9% 100 ML IVPB SCH ×2 (09:59→10:14)
[2021-06-08] MEDS ORDERED: Albumin 25% 25 GM/100 ML BOT IVPB SCH (10:00)
[2021-06-08] MEDS: Albuterol Sulfate 2.5 mg/3 ml Neb NEB SCH ×3 (10:16→19:00)
[2021-06-08] MEDS ORDERED: Lorazepam 2 MG/ML VIAL SLOW IVP PRN (11:00)
[2021-06-08] MEDS ORDERED: Morphine 4 MG/ML VIAL SLOW IVP PRN (14:41)
[2021-06-08] MEDS: Morphine 4 MG/ML VIAL SLOW IVP PRN ×2 (14:58→20:14)
[2021-06-08] MEDS ORDERED: Vancomycin 1 GM in Premix Bag 1 BAG IVPB SCH (21:00)
[2021-06-08] MEDS ORDERED: cefTRIAXone\\ROCEPHIN 2 GM in Sodium Chloride 0.9% 100 ML IVPB SCH (22:00)
[2021-06-08 22:32] VITALS: BP 110/65; TEMP 97.2
== END 2021-06-08 22:29 | disposition hospice, inpatient (51) | DRG 871 ==
LOC: ERS 19:18 → ERHOLD 22:52 → IMCU/EMU 06-08 00:48
PROVIDERS: ADMIT Student in an Organized Health Care Education/Training Program; ATTEND Student in an Organized Health Care Education/Training Program
PROC: 5A09357 Assistance with Respiratory Ventilation, Less than 24 Consecutive Hours, Continuous Positive Airway Pressure (ICD-10-PCS; 2021-06-07)
PROC: 0W9G3ZZ Drainage of Peritoneal Cavity, Percutaneous Approach (ICD-10-PCS; principal; 2021-06-08)
DX: A41.9 Sepsis, unspecified organism (principal); J96.01 Acute respiratory failure with hypoxia; K65.2 Spontaneous bacterial peritonitis; R18.8 Other ascites; N17.9 Acute kidney failure, unspecified; K76.6 Portal hypertension; Z66 Do not resuscitate; Z20.822 Contact with and (suspected) exposure to COVID-19; Z21 Asymptomatic human immunodeficiency virus [HIV] infection status; K74.60 Unspecified cirrhosis of liver; F41.1 Generalized anxiety disorder; D69.6 Thrombocytopenia, unspecified; I10 Essential (primary) hypertension; J44.9 Chronic obstructive pulmonary disease, unspecified; M19.90 Unspecified osteoarthritis, unspecified site; E11.649 Type 2 diabetes mellitus with hypoglycemia without coma; L89.151 Pressure ulcer of sacral region, stage 1; E11.40 Type 2 diabetes mellitus with diabetic neuropathy, unspecified; M21.372 Foot drop, left foot; G89.4 Chronic pain syndrome; K31.89 Other diseases of stomach and duodenum; Z99.81 Dependence on supplemental oxygen; Z90.49 Acquired absence of other specified parts of digestive tract; Z98.51 Tubal ligation status; Z88.2 Allergy status to sulfonamides; Z88.8 Allergy status to other drugs, medicaments and biological substances; Z88.0 Allergy status to penicillin; Z91.013 Allergy to seafood; Z87.891 Personal history of nicotine dependence
CPT/HCPCS: 0240U; 36415; 36416; 49082; 71045; 80053; 82042; 82550; 83605; 83690; 83880; 84157; 84484; 85025; 85060; 85610; 85730; 87040; 87070; 87077; 87186; 87205; 89051; 93005; 94640; 94660; 94760; 96365; 96366; 96367; 96375; J0692; J0696; J2270; J2765; J3010; J3370; J3490; J7611; P9047; Q0162

== ENCOUNTER 2021-06-08 22:26 | Inpatient (IN) | payer OTHER ==
[2021-06-08] MEDS ORDERED: Lorazepam 2 MG/ML VIAL SLOW IVP PRN (22:56)
[2021-06-08] MEDS ORDERED: Morphine 4 MG/ML VIAL SLOW IVP PRN (23:00)
[2021-06-08] MEDS ORDERED: Ondansetron PF 4 MG/2 ML Vial IVP PRN (23:10)
[2021-06-08] MEDS ORDERED: Scopolamine 1.5 mg/72 hour Patch TOP SCH (23:30)
[2021-06-08] MEDS: Morphine 4 MG/ML VIAL SLOW IVP SCH (23:44)
[2021-06-09 00:08] VITALS: BMI 24.2
[2021-06-09] MEDS: Morphine 4 MG/ML VIAL SLOW IVP SCH ×24 (00:14→22:48)
[2021-06-09] MEDS: Lorazepam 2 MG/ML VIAL SLOW IVP SCH ×6 (00:54→20:37)
[2021-06-10] MEDS: Morphine 4 MG/ML VIAL SLOW IVP SCH ×12 (00:01→11:02)
[2021-06-10] MEDS: Lorazepam 2 MG/ML VIAL SLOW IVP SCH ×3 (01:00→11:03)
[2021-06-10 09:00] VITALS: BP 48/26; TEMP 96.8
== END 2021-06-10 11:11 | disposition expired | DRG 951 ==
LOC: IMCU/EMU 22:26 → MSONC 23:29
PROVIDERS: ADMIT Family Medicine; ATTEND Family Medicine
DX: Z51.5 Encounter for palliative care (principal); A41.9 Sepsis, unspecified organism; Z66 Do not resuscitate; K65.2 Spontaneous bacterial peritonitis; K76.7 Hepatorenal syndrome; J96.01 Acute respiratory failure with hypoxia; N17.9 Acute kidney failure, unspecified; R18.8 Other ascites; I10 Essential (primary) hypertension; F17.210 Nicotine dependence, cigarettes, uncomplicated; J44.9 Chronic obstructive pulmonary disease, unspecified; M19.90 Unspecified osteoarthritis, unspecified site; F31.9 Bipolar disorder, unspecified; E11.40 Type 2 diabetes mellitus with diabetic neuropathy, unspecified; Z21 Asymptomatic human immunodeficiency virus [HIV] infection status; K74.60 Unspecified cirrhosis of liver; Z88.0 Allergy status to penicillin; Z88.2 Allergy status to sulfonamides; Z88.8 Allergy status to other drugs, medicaments and biological substances; Z79.84 Long term (current) use of oral hypoglycemic drugs; Z79.899 Other long term (current) drug therapy; Z90.49 Acquired absence of other specified parts of digestive tract; Z98.51 Tubal ligation status
CPT/HCPCS: J2060; J2270